=== PATIENT | female | born 1960 | race Two or more races ===

== ENCOUNTER → 2024-08-18 | Outpatient (CLI) | payer SELFPAY ==
[2024-08-20 13:08] LABS: QNTFERON TB Mitogen Value > 10.00 IU/mL (.); QNTFERON TB Nil Value 0.06 IU/mL (.); QNTFERON TB1+ Ag Value 0.06 IU/mL (.); QNTFERON TB2+ Ag Value 0.06 IU/mL (.); QNTIFERON TB Positive Criteria Negative (Negative); V-Zoster IgG (Immunity) Reactive (Non Reactive)
== END | disposition home or self-care (01) ==
PROVIDERS: PCP Family Medicine; Referring Provider Family Medicine; Visit Provider Family Medicine
DX: Z71.85 Encounter for immunization safety counseling (principal)
CPT/HCPCS: 36415; 86480; 86787